=== PATIENT | female | born 1970 | race Caucasian/White ===

== ENCOUNTER → 2018-08-18 | Outpatient (CLI) | payer OTHER | LOC: FIMAGING 15:43 | PROVIDERS: ATTEND Psychiatry & Neurology Neurology | DX: R41.3 Other amnesia (principal); R20.2 Paresthesia of skin; R90.89 Other abnormal findings on diagnostic imaging of central nervous system; Z86.74 Personal history of sudden cardiac arrest; Z95.810 Presence of automatic (implantable) cardiac defibrillator ==

== ENCOUNTER 2018-09-07 08:35 | Emergency (ER) | payer OTHER ==
[2018-09-07] MEDS ORDERED: NS 500 ML IV ONE (08:46)
--- NOTE | 2018-09-07 08:48 | EDPHY ---
H & P Stated Complaint: defibrillator went off x 2 Time Seen by Provider: 09/07/18 08:43 HPI/ROS: CHIEF COMPLAINT: Defibrillator went off HISTORY OF PRESENT ILLNESS: The patient is a 48-year-old female who recently moved here from [place]. She reports a history of cardiac arrest and arrhythmia is and defibrillator placement earlier this year. She had a coronary catheterization of the time that she reports was normal. She reports to me that she did not have any coronary artery disease but has had electrolyte problems with abnormal phosphate and potassium. She reports that her defibrillator went off today at around midnight and again around 3:00 a.m.. She feels asymptomatic now other than being tired because she was woken up. No chest pain. She states that last time her defibrillator went office because her potassium was "messed up". She denies chest pain or shortness of breath. Severity: Moderate Modifying factors: The none REVIEW OF SYSTEMS: Constitutional: denies: chills, fever, recent illness, recent injury EENTM: denies: blurred vision, double vision, nose congestion Respiratory: denies: cough, shortness of breath Cardiac: See HPI denies: chest pain Gastrointestinal/Abdominal: denies: abdominal pain, diarrhea, nausea, vomiting, blood streaked stools Genitourinary: denies: dysuria, frequency, hematuria, pain Musculoskeletal: denies: joint pain, muscle pain Skin: denies: lesions, rash, jaundice, bruising Neurological: denies: headache, numbness, paresthesia, tingling, dizziness, weakness Hematologic/Lymphatic: denies: blood clots, easy bleeding, easy bruising Immunologic/allergic: denies: HIV/AIDS, transplant 10 systems reviewed and negative except as noted EXAM: GENERAL: Well-appearing, well-nourished and in no acute distress. HEAD: Atraumatic, normocephalic. EYES: Pupils equal round and reactive to light, extraocular movements intact, sclera anicteric, conjunctiva are normal. ENT: TMs normal, nares patent, oropharynx clear without exudates. Moist mucous membranes. NECK: Normal range of motion, supple without lymphadenopathy or JVD. LUNGS: Breath sounds clear to auscultation bilaterally and equal. No wheezes rales or rhonchi. HEART: Regular rate and rhythm without murmurs, rubs or gallops. ABDOMEN: Soft, nontender, normoactive bowel sounds. No guarding, no rebound. No masses appreciated. BACK: No CVA tenderness, no spinal tenderness, step-offs or deformities EXTREMITIES: Normal range of motion, no pitting or edema. No clubbing or cyanosis. NEUROLOGICAL: Cranial nerves II through XII grossly intact. Normal speech, normal gait. 5/5 strength, normal movement in all extremities, normal sensation , normal reflexes PSYCH: Normal mood, normal affect. SKIN: Warm, dry, normal turgor, no visible rashes or lesions. Source: Patient - Personal History LMP (Females 10-55): Post Menopausal Current Tetanus/Diphtheria Vaccine: Yes - Medical/Surgical History Hx Asthma: Yes Hx Chronic Respiratory Disease: No Hx Diabetes: No Hx Cardiac Disease: Yes Hx Renal Disease: Yes Hx Cirrhosis: No Hx Alcoholism: No Hx HIV/AIDS: No Hx Splenectomy or Spleen Trauma: No Other PMH: defibrillator, mckeon procedure - Family History Significant Family History: No pertinent family hx - Social History Smoking Status: Current some day smoker Alcohol Use: Sober Drug Use: None Constitutional: Initial Vital Signs Temperature (C) 36.8 C 09/07/18 08:37 Heart Rate 70 09/07/18 08:37 Respiratory Rate 16 09/07/18 08:37 Blood Pressure 121/86 H 09/07/18 08:37 O2 Sat (%) 94 09/07/18 08:37 O2 Delivery Mode Room Air Allergies/Adverse Reactions: gluten Allergy (Verified 09/07/18 08:37) latex Allergy (Verified 09/07/18 08:37) Home Medications: Medication Instructions Recorded Aspirin 325 mg (*) 09/07/18 Atorvastatin Calcium 09/07/18 Chantix 09/07/18 FOLIC ACID 09/07/18 Fish Oil 1,000 mg Softgel 09/07/18 Klonopin 09/07/18 Levothyroxine 09/07/18 Magnesium 09/07/18 Metoprolol Succinate Xr 09/07/18 VENLAFAXINE HCL 09/07/18 Vitamin D2 09/07/18 traMADol 09/07/18 Medical Decision Making - Diagnostics Imaging Results: Imaging Impressions Chest X-Ray 09/07/18 09:13 Impression: 1. Mild cardiomegaly without decompensation. 2. The defibrillator apparatus is in expected position. Imaging: Discussed imaging studies w/ claim inspector Radiologist ED Course/Re-evaluation: 9:40 a.m. the patient's electrolytes are reassuring. She is currently having her pacemaker interrogated. 10:15 p.m. we discussed the interrogation results. The interrogation says that the pacemaker is working well and there were no recorded arrhythmias or defibrillations last night. The patient did state to me that she wondered if it was simply a bad dream but thought that she must have been shocked because she had some chest pain this morning. It turns out she did not received defibrillation. I did not order a troponin initially assuming that it would be positive if she was defibrillated however now that she was not defibrillated and she is complaining of slight chest pain this morning I recommended we do a troponin. She declines this and does not want to have further testing. She states that she is following up with her mangle tender on Friday any ways. She will return here if her symptoms worsen or recur. We discussed the risks and benefits. Her sister was present. The patient is persistent and wishing to go home and not have further blood work done. Differential Diagnosis: Partial list of the Differential diagnosis considered include but were not limited to; arrhythmia, electrolyte abnormality, defibrillation, nightmare and although unlikely based on the history and physical exam, I also considered acute coronary disease, PE, pneumonia. I discussed these differential diagnoses and the plan with the patient as well as the usual and expected course. The patient understands that the diagnosis is provisional and that in medicine we are not always correct and that further workup is often warranted. Usual and customary warnings were given. All of the patient's questions were answered. The patient was instructed to return to the emergency department should the symptoms at all worsen or return, otherwise to followup with the physician as we discussed. - Data Points Laboratory Results: Laboratory Results 09/07/18 08:30 09/07/18 08:45 09/07/18 09/07/18 08:45 08:30 WBC 7.57 10^3/uL 10^3/uL (3.80-9.50) RBC 4.71 10^6/uL 10^6/uL (4.18-5.33) Hgb 14.1 g/dL g/dL (12.6-16.3) Hct 42.6 % % (38.0-47.0) MCV 90.4 fL fL (81.5-99.8) MCH 29.9 pg pg (27.9-34.1) MCHC 33.1 g/dL g/dL (32.4-36.7) RDW 12.6 % % (11.5-15.2) Plt Count 304 10^3/uL 10^3/uL (150-400) MPV 8.9 fL fL (8.7-11.7) Neut % (Auto) 54.4 % % (39.3-74.2) Lymph % (Auto) 35.1 % % (15.0-45.0) [place] % (Auto) 3.7 % L % (4.5-13.0) Eos % (Auto) 5.2 % % (0.6-7.6) Baso % (Auto) 1.2 % % (0.3-1.7) Nucleat RBC Rel Count 0.0 % % (0.0-0.2) Absolute Neuts (auto) 4.12 10^3/uL 10^3/uL (1.70-6.50) Absolute Lymphs (auto) 2.66 10^3/uL 10^3/uL (1.00-3.00) Absolute Monos (auto) 0.28 10^3/uL L 10^3/uL (0.30-0.80) Absolute Eos (auto) 0.39 10^3/uL 10^3/uL (0.03-0.40) Absolute Basos (auto) 0.09 10^3/uL 10^3/uL (0.02-0.10) Absolute Nucleated RBC 0.00 10^3/uL 10^3/uL (0-0.01) Immature Gran % 0.4 % % (0.0-1.1) Immature Gran # 0.03 10^3/uL 10^3/uL (0.00-0.10) Sodium 140 mEq/L mEq/L (135-145) Potassium 3.9 mEq/L mEq/L (3.3-5.0) Chloride 100 mEq/L mEq/L (97-110) Carbon Dioxide 28 mEq/l mEq/l (22-31) Anion Gap 12 mEq/L mEq/L (6-14) BUN 10 mg/dL mg/dL (7-23) Creatinine 0.6 mg/dL mg/dL (0.6-1.0) Estimated GFR > 60 Glucose 89 mg/dL mg/dL (70-100) Calcium 10.0 mg/dL mg/dL (8.5-10.4) Total Bilirubin 0.4 mg/dL mg/dL (0.1-1.4) Conjugated Bilirubin 0.3 mg/dL mg/dL (0.0-0.5) Unconjugated Bilirubin 0.1 mg/dL mg/dL (0.0-1.1) AST 33 IU/L IU/L (14-46) ALT 28 IU/L IU/L (9-52) Alkaline Phosphatase 172 IU/L H IU/L (38-126) Total Protein 9.0 g/dL H g/dL (6.3-8.2) Albumin 4.7 g/dL g/dL (3.5-5.0) Lipase 140 IU/L IU/L (23-300) Medications Given: Discontinued Medications Sodium Chloride (Ns) 500 mls @ 0 mls/hr IV EDNOW ONE; Wide Open PRN Reason: Protocol Stop: 09/07/18 08:47 Last Admin: 09/07/18 09:12 Dose: 500 mls Departure - Departure Disposition: Home, Routine, Self-Care Clinical Impression: Chest pain Qualifiers: Chest pain type: unspecified Qualified Code(s): R07.9 - Chest pain, unspecified Condition: Fair Instructions: Chest Pain (ED) Referrals: Hans Aguilar MD [Medical Doctor] - 1-2 days without fail
--- NOTE | 2018-09-07 08:56 | CPEKG ---
Test Reason : OPEN Blood Pressure : / mmHG Vent. Rate : 070 BPM Atrial Rate : 070 BPM P-R Int : 148 ms QRS Dur : 094 ms QT Int : 423 ms P-R-T Axes : 001 033 070 degrees QTc Int : 457 ms Sinus rhythm Confirmed by Reyes Calhoun ([id number]) on 09/07/2018 8:55:18 AM Referred By: Confirmed By:Reyes Calhoun
[2018-09-07 09:04] LABS: PLATELET COUNT 304 10^3/uL (150-400)
[2018-09-07 10:23] VITALS: BP 125/86
== END 2018-09-07 10:22 | disposition home or self-care (01) ==
DX: R07.9 Chest pain, unspecified (principal); F17.200 Nicotine dependence, unspecified, uncomplicated

== ENCOUNTER → 2018-12-16 | Outpatient (CLI) | payer OTHER ==
[~2018-12-16] MED LIST: IOPAMIDOL (ISOVUE-M 300) 15 ML VIAL ONE; LIDO/EPI 1% **for epidural** 30 ML SDV ONE; LIDOCAINE 1% 300 MG/30 ML SDV ONE
[2018-12-16 09:57] LABS: INR 0.97 (0.83-1.16); PROTIME(PATIENT) 13.1 SEC (12.0-15.0)
== END ==
LOC: FIMAGING 08:57
PROVIDERS: ATTEND Orthopaedic Surgery Orthopaedic Surgery of the Spine
DX: M54.16 Radiculopathy, lumbar region (principal); M54.12 Radiculopathy, cervical region; M48.02 Spinal stenosis, cervical region; M48.061 Spinal stenosis, lumbar region without neurogenic claudication
CPT/HCPCS: Q9967